=== PATIENT | female | born 1995 | race Two or more races ===

== ENCOUNTER 2016-11-26 22:22 | Emergency (ER) | payer MEDICAID, OTHER ==
[2016-11-26] MEDS ORDERED: LIDOCAINE 5% PATCH TD ONE (23:45)
[2016-11-27 00:13] LABS: URINE BILIRUBIN NEGATIVE (NEGATIVE); URINE BLOOD NEGATIVE (NEGATIVE); URINE GLUCOSE (UA) NEGATIVE (NEGATIVE); URINE LEUKOCYTE ESTERASE TRACE (NEGATIVE); URINE NITRITE NEGATIVE (NEGATIVE); URINE PROTEIN NEGATIVE (NEGATIVE); URINE UROBILINOGEN 1 mg/dL (0-1 mg/dl)
[2016-11-27 00:17] LABS: HCG,QUALITATIVE URINE POSITIVE; URINE APPEARANCE TURBID; URINE COLOR YELLOW
[2016-11-27 00:43] LABS: URINE BACTERIA 0; URINE RBC 0-2 /hpf; URINE WBC 0-2 /hpf
[2016-11-27 00:44] LABS: URINE AMORPHOUS SEDIMENT 3+ PHOSPHATES
[2016-11-27] MEDS ORDERED: CEPHALEXIN 500 MG CAPSULE ONE (00:51)
[2016-11-27] MEDS ORDERED: HYDROCODONE/ACETAMINOPHEN 5/325MG TABLET ONE (00:51)
== END 2016-11-27 01:12 | disposition home or self-care (01) ==
LOC: ED 22:22
DX: O23.42 Unspecified infection of urinary tract in pregnancy, second trimester (principal); Z3A.15 15 weeks gestation of pregnancy
CPT/HCPCS: 81025; 81001; 99283 ×2; A9270 ×3